=== PATIENT | female | born 1985 | race Caucasian/White ===

== ENCOUNTER 2016-11-05 20:03 | Emergency (ER) | payer OTHER ==
[~2016-11-05] VITALS: Ht 154.9 cm; Wt 59.4 kg
[2016-11-05 20:19] VITALS: BP 123/79
[2016-11-05 21:21] LABS: BILIRUBIN,URINE NEGATIVE (NEG); GLUCOSE,URINE NEGATIVE (NEG); NITRITE,URINE NEGATIVE (NEG); PROTEIN,URINE NEGATIVE (NEG-TRACE); UROBILINOGEN,URINE 0.2 mg/dL (0.2 mg/dL)
[2016-11-05 21:42] LABS: BACTERIA,URINE MODERATE /HPF (0-FEW); RBC,URINE 0 /HPF (0-2); SQUAMOUS EPITHELIAL CELL,UR MANY /LPF
[2016-11-05] MEDS ORDERED: KETOROLAC TROMETHAMINE 60 MG/2 ML SYRINGE. IM ONE (21:45)
[2016-11-05] MEDS ORDERED: OXYM30SP NS (21:45)
[2016-11-05] MEDS ORDERED: IBUP-1060 PO (21:46)
--- NOTE | 2016-11-05 21:46 | PHYS DOC ---
Past Medical History Past Medical History: Migraines, Other Additional Past Medical Histor: TMJ Past Surgical History: Tonsillectomy Additional Past Surgical Histo: dental Alcohol Use: Occasionally Drug Use: None Adult General Chief Complaint Chief Complaint: HEADACHE HPI HPI This is a 30-year-old female who is otherwise healthy that states she's had significant sinus congestion for the last several days and a worsening headache today was 1 episode of vomiting. She states she does have history of headaches and tried taking Excedrin today without relief. She states she has some mild tenderness over her right ethmoidal region. Currently she is in no acute distress whatsoever. She denies any fever or chills. She denies any significant shortness of breath or cough. Review of Systems Review of Systems Constitutional: Denies fever or chills [] Eyes: Denies change in visual acuity, redness, or eye pain [] HENT: Has nasal congestion, has sore throat [] Respiratory: Denies cough or shortness of breath [] Cardiovascular: No additional information not addressed in HPI [] GI: Denies abdominal pain, nausea, vomiting, bloody stools or diarrhea [] : Denies dysuria or hematuria [] Musculoskeletal: Denies back pain or joint pain [] Integument: Denies rash or skin lesions [] Neurologic: Has headache, denies focal weakness or sensory changes [] Endocrine: Denies polyuria or polydipsia [] Current Medications Current Medications Current Medications Medications (Trade) Dose Ordered Sig/Luis E Start Time Stop Time Status Last Admin Dose Admin Ketorolac Tromethamine (Toradol Im) 60 mg 1X ONCE 11/05/16 21:45 11/05/16 21:46 DC 11/05/16 22:03 60 MG Allergies Allergies Allergies Coded Allergies Type Severity Reaction Last Updated Verified No Known Drug Allergies 11/05/16 No Physical Exam Physical Exam Constitutional: Well developed, well nourished, no acute distress, non-toxic appearance. [] HENT: Normocephalic, atraumatic, bilateral external ears normal, oropharynx moist, no oral exudates, nose normal. [] Eyes: PERRLA, EOMI, conjunctiva normal, no discharge. [] Neck: Normal range of motion, no tenderness, supple, no stridor. [] Cardiovascular:Heart rate regular rhythm, no murmur [] Lungs & Thorax: Bilateral breath sounds clear to auscultation [] Abdomen: Bowel sounds normal, soft, no tenderness, no masses, no pulsatile masses. [] Skin: Warm, dry, no erythema, no rash. [] Back: No tenderness, no CVA tenderness. [] Extremities: No tenderness, no cyanosis, no clubbing, ROM intact, no edema. [] Neurologic: Alert and oriented X 3, normal motor function, normal sensory function, no focal deficits noted. [] Psychologic: Affect normal, judgement normal, mood normal. [] Current Patient Data Vital Signs Vital Signs Date Time Temp Pulse Resp B/P Pulse Ox O2 Delivery O2 Flow Rate FiO2 11/05/16 20:19 98.1 100 20 123/79 98 Room Air 98.1 Lab Values Laboratory Tests Test 11/05/16 21:00 11/05/16 21:18 Urine Collection Type Unknown Urine Color Yellow Urine Clarity Clear Urine pH 6.0 Urine Specific Armstrong 1.015 Urine Protein Negativemg/dL (NEG-TRACE) Urine Glucose (UA) Negativemg/dL (NEG) Urine Ketones (Stick) Tracemg/dL (NEG) Urine Blood Negative (NEG) Urine Nitrite Negative (NEG) Urine Bilirubin Negative (NEG) Urine Urobilinogen Dipstick 0.2mg/dL (0.2 mg/dL) Urine Leukocyte Esterase Trace (NEG) Urine RBC 0/HPF (0-2) Urine WBC 5-10/HPF (0-4) Urine Squamous Epithelial Cells Many/LPF Urine Bacteria Moderate/HPF (0-FEW) Urine Mucus Marked/LPF POC Urine HCG, Qualitative Hcg negative (Negative) EKG EKG [] Radiology/Procedures Radiology/Procedures [] Course & Med Decision Making Course & Med Decision Making Pertinent Labs and Imaging studies reviewed. (See chart for details) This 30-year-old female sinus congestion and likely a sinus type headache will be discharged with a course of Afrin nasal spray and Ibuprofen. She states her headache currently is fairly mild after taking Excedrin denies any significant nausea. Counseled her at length to continue to take decongestants at home for the next several days and to return if her headache does not improve in the next several days. I also told her to follow closely with her primary care doctor. I do not see an indication at this time to perform any imaging or laboratory workup. I do not see a need to begin her on any antibiotics as she is well within a viral window of her symptoms. Astrid Disclaimer Astrid Disclaimer This electronic medical record was generated, in whole or in part, using a voice recognition dictation system. Departure Departure Impression: Primary Impression: Congestion of nasal sinus Additional Impression: Headache Disposition: 01 HOME, SELF-CARE Admitting Physician: Other Condition: STABLE Referrals: UNKNOWN PCP NAME (PCP) Patient Instructions: Sinus Headache, [id number] Additional Instructions: Please follow up with your primary doctor in the next 2-3 days for your sinus headache. Take your nasal spray as prescribed and take motrin as needed. Return to the ER if you develop any worsening of your symptoms. Scripts Ibuprofen 800 Mg Isjorb504 Mg PO PRN Q6HRS PRN INFLAMMATION #20 TAB Prov:HARDIK OCHOA DO 11/05/16 Oxymetazoline Hcl (Afrin)30 Ml Spray30 Ml NS BID #1 SPRAY Prov:HARDIK OCHOA DO 11/05/16 Problem Qualifiers HARDIK OCHOA DO Nov 05, 2016 21:46
== END 2016-11-05 22:05 | disposition home or self-care (01) ==
LOC: ER 20:03
DX: R51 Headache (principal); R09.81 Nasal congestion; G43.909 Migraine, unspecified, not intractable, without status migrainosus; Z98.890 Other specified postprocedural states
CPT/HCPCS: 81001; 81025; 87086; 96372; 99284; J1885

== ENCOUNTER 2017-02-23 10:09 | Emergency (ER) | payer OTHER ==
[~2017-02-23] VITALS: Ht 154.9 cm; Wt 59.0 kg
[~2017-02-23 10:09] MED LIST: IBUP-1060 PO; OXYM30SP NS
[2017-02-23 10:10] VITALS: BP 115/62
--- NOTE | 2017-02-23 10:33 | PHYS DOC ---
Past Medical History Past Medical History: Migraines, Other Additional Past Medical Histor: TMJ Past Surgical History: Tonsillectomy Additional Past Surgical Histo: dental Alcohol Use: Occasionally Drug Use: None Adult General Chief Complaint Chief Complaint: LACERATION/AVULSION HPI HPI Patient is a 31 year old female with a history of migraine headaches who presents today with right hand laceration. Patient states she was trying to remove an avocado seed from an Avocado when the knife slipped and cut her. Patient is very anxious right now. Review of Systems Review of Systems Constitutional: Denies fever or chills [] Eyes: Denies change in visual acuity, redness, or eye pain [] Musculoskeletal: Denies back pain or joint pain [] Integument:right hand laceration Neurologic: Denies headache, focal weakness or sensory changes [] Endocrine: Denies polyuria or polydipsia [] Current Medications Current Medications Current Medications Medications (Trade) Dose Ordered Sig/Luis E Start Time Stop Time Status Last Admin Dose Admin Acetaminophen/ Hydrocodone Bitart (Lortab 5/325) 1 tab 1X ONCE 02/23/17 11:00 02/23/17 11:01 DC 02/23/17 10:33 1 TAB Diphtheria/ Tetanus/Acell Pertussis (Boostrix) 0.5 ml ONCE ONCE 02/23/17 11:00 02/23/17 11:01 DC 02/23/17 10:34 0.5 ML Lidocaine/Sodium Bicarbonate (Buffered Lidocaine 1%) 20 ml 1X ONCE 02/23/17 11:00 02/23/17 11:01 DC 02/23/17 10:34 20 ML Allergies Allergies Allergies Coded Allergies Type Severity Reaction Last Updated Verified No Known Drug Allergies 11/05/16 No Physical Exam Physical Exam Constitutional: Well developed, well nourished, no acute distress, non-toxic appearance. [] HENT: Normocephalic, atraumatic, bilateral external ears normal, oropharynx moist, no oral exudates, nose normal. [] Skin: Patient has a laceration approx. 2 cm horizontal on the right palm just below the third and fourth MIP joint. Full range of motion to the right hand and fingers including flexion and extension of the right fingers MIP PIP and DIP joints. +2 radial pulse. Adequate radial medial and ulnar sensation to the right hand. Cap refill less than 2 seconds the right hand. Sensation intact to the right hand. Back: No tenderness, no CVA tenderness. [] Extremities: No tenderness, no cyanosis, no clubbing, ROM intact, no edema. [] Neurologic: Alert and oriented X 3, normal motor function, normal sensory function, no focal deficits noted. [] Psychologic: Patient is very anxious. She is writhing and moving around in the bed stating she is anxious about being in the hospital. Current Patient Data Vital Signs Vital Signs Date Time Temp Pulse Resp B/P (MAP) Pulse Ox O2 Delivery O2 Flow Rate FiO2 02/23/17 10:33 18 Room Air 02/23/17 10:10 98.0 62 97 98.0 EKG EKG [] Radiology/Procedures Radiology/Procedures Indication: Left hand laceration Procedure: The patient was placed in the appropriate position and anesthesia around the laceration was 1% buffered lidocaine. The area was then cleaned with 100 ML of normal saline and explored for foreign objects, none was found, the laceration was cleaned with Betadine. The laceration was closed with 4 interrupted sutures using 5. 0 Ethilon. The wound area was then dressed with non stick dressing Total repaired wound length: approx. 2 cm long Other Items: none The patient tolerated the procedure well Complications: none Course & Med Decision Making Course & Med Decision Making Pertinent Labs and Imaging studies reviewed. (See chart for details) Patient has right hand laceration after cutting herself while removing an avocado seed from an avocado. She was given tetanus in the ED. She is very anxious on arrival to the ED. Patient's laceration was closed as noted by me in procedures. She was provided wound care instructions as well as return precautions. Dragon Disclaimer Dragon Disclaimer This electronic medical record was generated, in whole or in part, using a voice recognition dictation system. Departure Departure Impression: Primary Impression: Laceration of right hand Additional Impression: Anxiety Disposition: 01 HOME, SELF-CARE Condition: STABLE Referrals: UNKNOWN PCP NAME (PCP) Follow-up with the ED or your primary care doctor in 7-10 days for suture removal Patient Instructions: Laceration Care, Adult Additional Instructions: You have laceration to the right hand that was closed with stitches. You can shower. Keep the area clean and dry. Apply Neosporin to the area twice a day. Follow-up with your own doctor or the emergency room in 7-10 days for suture removal. Do not soak the right hand in water but you can shower. Problem Qualifiers Primary Impression: Laceration of right hand Encounter type: initial encounter Foreign body presence: without foreign body Qualified Codes: S61.411A - Laceration without foreign body of right hand , initial encounter JOSE R TURNER [employer] TESTER Feb 23, 2017 10:33
[2017-02-23] MEDS ORDERED: DIPHTH,PERTUSS(ACELL),TET TOX 0.5 ML DISP.SYRIN. VAX IM ONE (11:00)
[2017-02-23] MEDS ORDERED: LIDOCAINE 1% / SOD BICARB 8.4% 20 ML VIAL. IJ ONE (11:00)
[2017-02-23] MEDS ORDERED: HYDROcodone/APAP 5/325MG 1 TAB TABLET PO ONE (11:00)
--- NOTE | 2017-02-23 11:26 | RAD ---
EXAM: Right hand 3 views. HISTORY: Laceration. COMPARISON: None. FINDINGS: There is no fracture or radiopaque foreign body. A bone island or melorheostosis are noted within the 5th middle phalanx ulnarly. Joint spaces and alignment are maintained. IMPRESSION: 1. No fracture or radiopaque foreign body.
== END 2017-02-23 11:24 | disposition home or self-care (01) ==
LOC: ER 10:09
DX: S61.411A Laceration without foreign body of right hand, initial encounter (principal); G89.29 Other chronic pain; F41.9 Anxiety disorder, unspecified; G43.909 Migraine, unspecified, not intractable, without status migrainosus; W26.0XXA Contact with knife, initial encounter; Y93.89 Activity, other specified; Y92.89 Other specified places as the place of occurrence of the external cause; Y99.8 Other external cause status
CPT/HCPCS: 12001; 73130; 90471; 90715; 99284